=== PATIENT | female | born 1980 | race Caucasian/White ===

== ENCOUNTER 2024-05-07 10:52 | Emergency (ER) | payer OTHER, SELFPAY ==
[2024-05-07 10:54] VITALS: BP 114/63; PULSE 80; RESP 18; TEMP 36.4; O2SAT 95; BMI 31.8
--- NOTE | 2024-05-07 11:14 | ED.GENADULT ---
HPI - General Adult General Chief complaint: General Medical Stated complaint: Methadone dose Time Seen by Provider: 05/07/24 11:01 Source: patient and old records reviewed Mode of arrival: ambulatory Limitations: no limitations History of Present Illness ED Provider: Joshua Hutchison PA-C HPI narrative: 43 yo female with history of opioid use disorder, only completed a detox program and is now in sober living, relocated to a local [facility] house who presents to the ER for her methadone dose. She last got 110 mg yesterday at [facility] in [facility]. She is being set up at [facility] in [place] tomorrow. Unable to get intake done today so was sent to the ER for dosing. She states her last use was 60 days ago. She denies any opiate withdrawal symptoms at this time. MD complaint: Methadone dose Associated symptoms: denies other symptoms Treatments prior to arrival: none Related Data Home Medications ?Medication ?Instructions ?Recorded ?Confirmed methadone 10 mg/mL oral 110 mg PO DAILY 05/07/24 05/07/24 concentrate (Methadone Intensol) Allergies Allergy/AdvReac Type Severity Reaction Status Date / Time No Known Allergies Allergy Verified 05/07/24 10:57 Review of Systems Review of Systems: Yes all other systems are reviewed and are negative PMFSH Social History Social History Advance Directives: No Do you have a plan to hurt others: No Plan Physical Exam ED Vital Signs: Vital Signs - 24 hr 05/07/24 10:54 05/07/24 12:03 05/07/24 12:18 Temperature 97.5 F 97.5 F 97.5 F Pulse Rate 80 80 80 Respiratory Rate 18 18 18 Blood Pressure 114/63 114/63 114/63 Pulse Oximetry 95 95 95 Oxygen Delivery Method Room Air Room Air Room Air BMI result Body Mass Index 31.8 Appearance: Alert. Oriented X3. No acute distress. HEENT: normal external inspection Neck: Normal inspection. CVS: Normal heart rate and rhythm. Pulses normal. Respiratory: No respiratory distress. Breath sounds normal. Skin: Skin warm and dry. Normal skin color. Normal skin turgor. No rashes. Extremities: No lower extremity edema. No joint swelling. Neuro/psych: Oriented X 3. grossly normal, nonfocal. pleasant and cooperative Medications Administered Discontinued Medications Generic Name Dose Route Start Last Admin Trade Name Freq PRN Reason Stop Dose Admin Methadone HCl 110 mg 05/07/24 11:01 05/07/24 11:52 Methadone Hcl 20 Mg/2 Ml Oral.Conc PO 05/07/24 11:02 110 mg ONCE ONE Administration Medical Decision Making Medical Decision Making [facility] Narrative: 43-year-old female with history of opioid use disorder who is now 60 days clean on methadone maintenance who presents to the ER for methadone dosing. She presents with her last dose letter from [facility]. This was verified with pharmacy and she was dosed 110 mg in the ER today. She had no evidence of opioid withdrawal. Low suspicion for ongoing use. She is excited about staying in recovery program. At this time she is stable for discharge home with follow-up with the methadone clinic in the community tomorrow Differential Diagnosis Differential Diagnoses: The differential diagnosis associated with the presentation includes opioid use disorder, polysubstance abuse, low suspicion for med seeking External Record Review External record reviewed: Office record Prescription Management I considered prescription management with: Pain Medication Chronic Conditions Patient?s care impacted by: Other (opioid use disorder) Social Determinants Patient?s care significantly limited by Social Determinants of Health including: Other Social Determinant of Health Critical Care Time Critical Care Time Critical Care Time: No Discharge Plan Discharge Clinical Impression: Opioid use disorder in remission Patient Disposition: Home, Self-Care Instructions: Opioid Use Disorder (ED) Additional Instructions: You were given 110 mg of methadone today at 11:30. Follow-up with [facility] tomorrow for further dosing Prescriptions: No Action methadone [Methadone Intensol] 10 mg/mL Concentrate 110 mg PO DAILY Referrals: [facility] [Provider Group] Tyrone Ordoñez MD [Primary Care Provider] - Interventions: ED Discharge Assessment Last Done: 05/07/24 12:18 Discharge Date/Time: 05/07/24 12:21 Print Language: Albanian
--- NOTE | 2024-05-07 11:29 | PC.NURSE ---
LAST DOSE METHADONE LETTER FAXED TO PHARMACY AT 1112, PENDING PHARMACIST VERIFICATION- FAX CONFIRMATION RECEIVED
--- NOTE | 2024-05-07 11:35 | HE.PHANOTE ---
Methadone Pt receives from [facility] ([phone]), last recieved 110mg on 05/06/24.
[2024-05-07] MEDS: methADONE HCl 20 MG/2 ML ORAL.CONC 110 MG PO (11:52)
[2024-05-07 12:03] VITALS: BP 114/63; PULSE 80; RESP 18; TEMP 36.4; O2SAT 95
[2024-05-07 12:18] VITALS: BP 114/63; PULSE 80; RESP 18; TEMP 36.4; O2SAT 95
== END 2024-05-07 12:21 | disposition home or self-care (01) ==
PROVIDERS: Emergency Provider Emergency Medicine Emergency Medical Services; PCP Internal Medicine
DX: F11.10 Opioid abuse, uncomplicated (principal); Z79.899 Other long term (current) drug therapy
CPT/HCPCS: 99282; 99283